=== PATIENT | female | born 1995 | race Two or more races ===

== ENCOUNTER 2017-09-30 07:41 | Emergency (ER) | payer SELFPAY ==
[~2017-09-30] VITALS: Ht 165.1 cm; Wt 69.8 kg
[2017-09-30 07:49] VITALS: Ht 165.1 cm; Wt 69.8 kg
[2017-09-30 08:43] LABS: PLATELET COUNT 283 x10^3mcL (130-400); RED CELL DISTRIBUTION WIDTH 11.9 % (11.5-14.5)
[2017-09-30 08:51] LABS: CALCIUM 8.7 mg/dL (8.5-10.1); CARBON DIOXIDE 29.6 mmol/L (21-32); CHLORIDE SERUM 102 mmol/L (98-107); CREATININE SERUM 0.9 mg/dL (0.6-1.0); GFR1 > 60 mL/min; GLUCOSE SERUM 112 mg/dL (74-106); POTASSIUM SERUM 3.9 mmol/L (3.5-5.1); SODIUM SERUM 140 mmol/L (136-145)
[2017-09-30 08:56] LABS: ALBUMIN 3.9 g/dL (3.4-5.0); ALKALINE PHOSPHATASE 117 U/L (46-116); ALT/SGPT 19 U/L (14-59); AMYLASE 42 U/L (25-115); AST/SGOT 16 U/L (15-37); BILIRUBIN TOTAL 0.4 mg/dL (0.20-1.00); LIPASE 113 IU/L (73-393)
[2017-09-30 08:57] LABS: BASOPHIL % 0 % (0-2)
[2017-09-30 09:37] VITALS: BP 107/63
== END 2017-09-30 09:57 | disposition home or self-care (01) ==
LOC: ED 07:41
PROVIDERS: Emergency Medicine
DX: R10.31 Right lower quadrant pain (principal)
CPT/HCPCS: 36415; 83880; J1885